=== PATIENT | male | born 1990 | race Caucasian/White ===

== ENCOUNTER 2016-07-06 08:19 | Emergency (ER) | payer BC ==
[~2016-07-06] VITALS: Ht 185.4 cm; Wt 102.0 kg
[~2016-07-06 08:19] MED LIST: DEXT15TA PO
[2016-07-06 08:25] VITALS: BP 134/91; PULSE 88; RESP 16; TEMP 98; O2SAT 100
[2016-07-06] MEDS ORDERED: CLIN150 PO (08:45)
--- NOTE | 2016-07-06 08:45 | PD ---
HPI Chief Complaint: Bleeding Time Seen by Provider: 08:39 Travel History International Travel<30 days: No Contact w/Intl Traveler<30days: No Traveled to known affect area: No History of Present Illness HPI The patient is a 26-year-old male who presents emergency department for chronic wound to left ankle. The patient notes a 3-4 year history of chronic wound to left lower extremity. The patient has been evaluated by vascular surgeons and will care physicians in the past, however, continues to have a chronic ulceration to the medial aspect the left ankle. 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 The patient states that he was showering this morning and had a small amount of bleeding from the affected area which is currently resolved. He also notes a history of superficial varicosities to left lower extremity and has been seen by a vascular surgeon in the past. He denies any history of DVT. The patient's symptoms are mild, resolved after holding pressure to the affected area, and possibly precipitated by cleaning the area. PFSH Past Medical History ADD: Yes Asthma: Yes (CHILDHOOD ASTHMA HX OF HAY FEVER) Diabetes: No Diminished Hearing: No Immunizations Current: Yes Past Surgical History Other Surgery: Yes (CYST FROM LOWER BACK REMOVED ) Social History Alcohol Use: Yes (SOC) Tobacco Use: Yes (1PPW) Substance Use: No Allergies-Medications (Allergen,Severity, Reaction): Coded Allergies: White Fish (Verified Allergy, Severe, Anaphylaxis, 07/06/16) THROAT SWELLS CLOSED Sulfa (Verified Allergy, Intermediate, Rash, 07/06/16) Reported Meds & Prescriptions Reported Meds & Active Scripts Active Reported Adderall 15 mg (Amphetamine/Dextroamphetamine) 15 Mg Tab 15 Mg PO DAILY Review of Systems General / Constitutional: No: Fever Musculoskeletal: Positive: Edema, Pain Skin: Positive Other (as noted in the history of present illness) Neurologic: No: Paresthesia, Sensory Disturbance Physical Exam Narrative GENERAL: Awake, alert, pleasant 26-year-old male who appears his stated age and is in no acute respiratory distress. SKIN: Warm and dry. HEAD: Atraumatic. Normocephalic. EYES: No injection or drainage.. MUSCULOSKELETAL: Patient has ulceration in the medial aspect of the left lower extremity just superior to the medial malleus. It measures 5 cm x 2.5 cm with granulation tissue. Surrounding chronic venous stasis changes noted. Superficial varicosities a left lower extremity noted, negative Homans sign. Positive left dorsalis with a pulse. No tenderness of the left popliteal fossa. NEUROLOGICAL: Awake and alert. No obvious cranial nerve deficits. Motor grossly within normal limits. Normal speech. PSYCHIATRIC: Appropriate mood and affect; insight and judgment normal. Data Data Last Documented VS Vital Signs Date Time Temp Pulse Resp B/P Pulse Ox O2 Delivery O2 Flow Rate FiO2 07/06/16 08:25 98.0 88 16 134/91 100 Orders Wound Care (07/06/16 08:40) MDM Medical Decision Making Medical Screen Exam Complete: Yes Emergency Medical Condition: Yes Medical Record Reviewed: Yes Differential Diagnosis Differential diagnosis includes chronic venous stasis, chronic ulcer, Buerger's disease, superficial varicosities, DVT. Narrative Course The patient's ulceration is chronic, he has small amount of bleeding earlier today per his report, but upon inspection there is no active bleeding. Positive distal pulses, chronic venous stasis changes with superficial varicosities but negative Homans sign. I doubt DVT. Patient is advised to follow-up with the wound care physician. Patient is advised to apply pressure dressings as needed, wound care instructions, work excuse for one day. He is also counseled to stop smoking. Diagnosis Primary Impression: Chronic ulcer of ankle Qualified Code: L97.329 - Chronic ulcer of ankle, left, with unspecified severity Patient Instructions: General Instructions Additional Instructions: Clindamycin as directed. Elevate, pressure dressings, follow-up with her wound care physician. Stop smoking. Work excuse for one day. Med/Other Pt SpecificInfo: Prescription(s) given Scripts Clindamycin (Cleocin)150 Mg Prn479 Mg PO Q6H 7 Days Ref 0 Prov:Rey Rojas MD 07/06/16 Disposition: 01 DISCHARGE HOME Condition: Stable Rey Rojas MD Jul 06, 2016 08:45
== END 2016-07-06 09:22 | disposition home or self-care (01) ==
LOC: PHED 08:19
DX: L97.329 Non-pressure chronic ulcer of left ankle with unspecified severity (principal)
CPT/HCPCS: 99282

== ENCOUNTER 2016-12-03 09:52 | Emergency (ER) | payer BC, OTHER ==
[~2016-12-03] VITALS: Ht 185.4 cm; Wt 110.0 kg
[~2016-12-03 09:52] MED LIST changes: +CLIN150 PO
[2016-12-03 09:54] VITALS: BP 128/76; PULSE 104; RESP 20; TEMP 97.6; O2SAT 95
--- NOTE | 2016-12-03 10:19 | PD ---
HPI Chief Complaint: Injury Time Seen by Provider: 10:14 Travel History International Travel<30 days: No Contact w/Intl Traveler<30days: No Traveled to known affect area: No History of Present Illness HPI Healthy 26-year-old male with history of venous insufficiency in the left leg with varicosities here with complaint of abrasion and bleeding. Patient was building a dock when piece of vinyl siding fell and hit the medial malleoli are aspect of his left leg where a superficial venous varicosities's. He sustained an abrasion and noted bleeding that he couldn't get to stop prompting ER visit. He has been able ambulate without any difficulty and denies any pain in the bony ankle anatomy. PFSH Past Medical History ADD: Yes Asthma: Yes (CHILDHOOD ASTHMA HX OF HAY FEVER) Diabetes: No Diminished Hearing: No Immunizations Current: Yes Past Surgical History Other Surgery: Yes (CYST FROM LOWER BACK REMOVED ) Social History Alcohol Use: Yes (SOC) Tobacco Use: Yes (1PPW) Substance Use: No Allergies-Medications (Allergen,Severity, Reaction): Coded Allergies: White Fish (Verified Allergy, Severe, Anaphylaxis, 12/03/16) THROAT SWELLS CLOSED Sulfa (Verified Allergy, Intermediate, Rash, 12/03/16) Reported Meds & Prescriptions Reported Meds & Active Scripts Active Cleocin (Clindamycin HCl) 150 Mg Cap 150 Mg PO Q6H 7 Days Reported [id number] Mg 15 Mg Tab 15 Mg PO DAILY Review of Systems Except as stated in HPI: all other systems reviewed are Neg Physical Exam Narrative GENERAL: Well-appearing male in no acute distress SKIN: Focused skin assessment warm/dry. HEAD: Normocephalic. EYES: No scleral icterus. No injection or drainage. CARDIOVASCULAR: Regular rate and rhythm. RESPIRATORY: No accessory muscle use. GASTROINTESTINAL: Obese MUSCULOSKELETAL: Venous stasis changes to the skin of the left medial malleoli region with associated to abrasions. No active bleeding, erythema, fluctuance. Significant venous varicosities to the left lower extremity area moves ankle without any difficulty, able to ambulate and bear weight without any difficulty. NEUROLOGICAL: Awake and alert. Normal speech. PSYCHIATRIC: Appropriate mood and affect; insight and judgment normal. Data Data Last Documented VS Vital Signs Date Time Temp Pulse Resp B/P Pulse Ox O2 Delivery O2 Flow Rate FiO2 12/03/16 09:54 97.6 104 20 128/76 95 Room Air [facility] Medical Decision Making Medical Screen Exam Complete: Yes Emergency Medical Condition: Yes Medical Record Reviewed: Yes Differential Diagnosis 26-year-old male here with complaint of bleeding and wound the left ankle. Exam is consistent with abrasion. No evidence of cellulitis, abscess or injury to the bony ankle anatomy. There is no evidence of active venous bleeding on exam. Narrative Course Patient reassured and given outpatient wound care clinic follow-up as needed if his wound is not healing. He does have significant varicosities and would potentially be a good candidate for vein stripping or laser therapy as an outpatient. This was discussed with patient. Diagnosis Primary Impression: Abrasion, left ankle, initial encounter Additional Impression: Venous insufficiency Referrals: Sejal Mosley MD as needed [place] [facility] as needed if wound does not heal. Additional Instructions: Wound care as instructed. Follow-up with wound care clinic if abrasion is not healing appropriately. Med/Other Pt SpecificInfo: No Change to Meds Disposition: 01 DISCHARGE HOME Condition: Stable Khalida Regalado MD Dec 03, 2016 10:19
[2016-12-03 10:20] VITALS: PULSE 86
== END 2016-12-03 10:50 | disposition home or self-care (01) ==
LOC: NEPD 09:52
DX: S80.812A Abrasion, left lower leg, initial encounter (principal); I87.2 Venous insufficiency (chronic) (peripheral); J45.909 Unspecified asthma, uncomplicated; F17.200 Nicotine dependence, unspecified, uncomplicated; W22.8XXA Striking against or struck by other objects, initial encounter; Z79.899 Other long term (current) drug therapy; Z88.2 Allergy status to sulfonamides
CPT/HCPCS: 99282

== ENCOUNTER 2017-02-09 01:16 | Emergency (ER) | payer SELFPAY ==
[~2017-02-09] VITALS: Ht 185.4 cm; Wt 100.0 kg
[2017-02-09 01:21] VITALS: BP 136/65; PULSE 135; RESP 12; TEMP 98.6; O2SAT 100
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
[2017-02-09] MEDS ORDERED: SODIUM CHLORIDE 0.9% FLUSH 10 ML FLUSH IVF PRN (01:45)
[2017-02-09] MEDS ORDERED: SODIUM CHLOR 0.9% 1000 ML INJ 1,000 ML IV ONE ×4 (01:45→07:00)
[2017-02-09 01:52] LABS: AUTOMATED NEUTROPHIL # 6.2 TH/MM3 (1.8-7.7); BASOPHIL # 0.1 TH/MM3 (0-0.2); BASOPHIL % 0.9 % (0.0-2.0); EOSINOPHIL # 0.2 TH/MM3 (0-0.4); EOSINOPHIL % 1.6 % (0.0-4.0); HEMO FLAGS DIFF FINAL; LYMPH % 24.2 % (9.0-44.0); LYMPHOCYTE # 2.4 TH/MM3 (1.0-4.8); MEAN CELL VOLUME 89.7 FL (80.0-100.0); MEAN CORPUSCULAR HGB CONC 33.5 % (32.0-36.0); MONO % 10.3 % (0.0-8.0); PLATELET COUNT 265 TH/MM3 (150-450); RED BLOOD COUNT 4.79 MIL/MM3 (4.50-5.90); RED CELL DISTRIBUTION WIDTH 13.6 % (11.6-17.2); WHITE BLOOD COUNT 9.8 TH/MM3 (4.0-11.0)
[2017-02-09 02:13] LABS: APTT (PATIENT) 20.5 SEC (24.3-30.1)
[2017-02-09 02:17] LABS: ALT (GPT) 30 U/L (12-78); ANION GAP 22 MEQ/L (5-15); AST (GOT) 24 U/L (15-37); BICARBONATE 16.2 MEQ/L (21.0-32.0); BLOOD UREA NITROGEN 15 MG/DL (7-18); CHLORIDE 104 MEQ/L (98-107); GLOMERULAR FILTRATION RATE 46 ML/MIN (>89); MAGNESIUM 2.3 MG/DL (1.5-2.5); POTASSIUM 3.3 MEQ/L (3.5-5.1); SODIUM (NA) 142 MEQ/L (136-145)
[2017-02-09 02:19] LABS: ALKALINE PHOSPHATASE 48 U/L (45-117); TOTAL BILIRUBIN ADULT 0.3 MG/DL (0.2-1.0)
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
[2017-02-09 02:20] LABS: ALCOHOL 3 MG/DL (0-5)
[2017-02-09 02:21] LABS: ACETAMINOPHEN LESS THAN 2.0 MCG/ML (10.0-30.0)
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
[2017-02-09 04:46] LABS: BACTERIA, URINE RARE /hpf; BLOOD, URINE NEG (NEG); COMMENT (UR) CULT NOT INDICATED; CULTURE IF INDICATED CULT NOT INDICATED; GLUCOSE,URINE NEG (NEG); HYALINE CAST, URINE 3 /lpf (RARE); KETONE, URINE TRACE mg/dL (NEG); MUCUS URINE FEW /lpf (OCC); NITRITE,URINE NEG (NEG); PH, URINE 6.5 (5.0-8.5); URINE COLOR YELLOW (YELLW/STRAW)
[2017-02-09 05:15] VITALS: BP 132/77; PULSE 96; RESP 15; O2SAT 99
[2017-02-09 05:45] VITALS: BP 135/87; PULSE 99; RESP 15; O2SAT 99
[2017-02-09 06:30] VITALS: BP 135/72; PULSE 97; RESP 14; O2SAT 99
[2017-02-09] MEDS ORDERED: AMBI10TA PO (07:05)
[2017-02-09] MEDS ORDERED: MIRTA15 PO (07:05)
[2017-02-09] MEDS ORDERED: ADDE30TA PO (07:05)
[2017-02-09 07:06] LABS: POTASSIUM 3.9 MEQ/L (3.5-5.1)
[2017-02-09] MEDS ORDERED: CALCIUM GLUCONATE 500 MG TAB PO ONE (07:30)
--- NOTE | 2017-02-09 09:16 | EKG ---
Date Performed: 02/09/2017 Time Performed: 02:20:31 PTAGE: 26 years EKG: SINUS TACHYCARDIA POSSIBLE RIGHT VENTRICULAR CONDUCTION DELAY POSSIBLE INFERIOR MYOCARDIAL INFARCTION ABNORMAL RHYTHM ECG PREVIOUS TRACING : 03/10/2016 08.23 DOCTOR: Barrie Chavez Interpretating Date/Time 02/09/2017 09:15:20
[2017-02-09] MEDS ORDERED: CALCIUM CARBONATE 500 MG CHEWABLE TAB CHEW ONE (09:30)
[2017-02-09 09:40] VITALS: BP 133/72
== END 2017-02-09 09:58 ==
LOC: NEPC 01:16
DX: F19.94 Other psychoactive substance use, unspecified with psychoactive substance-induced mood disorder (principal); F17.200 Nicotine dependence, unspecified, uncomplicated; F90.9 Attention-deficit hyperactivity disorder, unspecified type; R00.0 Tachycardia, unspecified; R07.9 Chest pain, unspecified; Z79.899 Other long term (current) drug therapy
CPT/HCPCS: 70450; 71010; 80053; 80307; 81001; 82800; 83605; 83735; 84484; 85025; 85610; 85730; 93005; 96360; 96361; 99285; J7030; 80048

== ENCOUNTER 2017-06-11 17:26 | Emergency (ER) | payer MEDICAID ==
[~2017-06-11] VITALS: Ht 185.4 cm; Wt 97.7 kg
[~2017-06-11 17:26] MED LIST changes: +ADDE30TA PO; +AMBI10TA PO; -CLIN150 PO; -DEXT15TA PO; +MIRTA15 PO
[2017-06-11 17:28] VITALS: BP 148/88; PULSE 119; RESP 13; TEMP 98.3; O2SAT 98
[2017-06-11] MEDS ORDERED: ALPR2TAB3 PO (17:52)
--- NOTE | 2017-06-11 18:10 | PD ---
HPI Chief Complaint: Medication Refill Request Time Seen by Provider: 17:51 Travel History International Travel<30 days: No Contact w/Intl Traveler<30days: No Traveled to known affect area: No History of Present Illness HPI 27-year-old male presents to the emergency room requesting medication refill of Xanax and Adderall. Patient states he has been out of his medications for 5 days. He has been tapering his Xanax because he is concerned for withdrawal seizures. He has had no symptoms of withdrawal otherwise. States he has been anxious and had difficulty concentrating in school since stopping his medications. He went to his appointment with his psychiatrist today but they would not see him because he had an outstanding balance. It took him this long to see a psychiatrist because of the holidays. Patient denies suicidal or homicidal ideations at this time. History Social History Alcohol Use: No Tobacco Use: Yes (1 pack per week) Allergies-Medications (Allergen,Severity, Reaction): Coded Allergies: Fish Containing Products (Unverified Allergy, Severe, Anaphylaxis, 01/22/17 ) THROAT SWELLS CLOSED Sulfa (Sulfonamide Antibiotics) (Unverified Allergy, Intermediate, Rash, ) Reported Meds & Prescriptions Reported Meds & Active Scripts Active Reported Alprazolam 2 Mg Tab 2 Mg PO BID Mirtazapine 15 Mg Tab 15 Mg PO HS Adderall (Amphetamine-Dextroamphetamine) 30 Mg Tab 30 Mg PO BID Avoid late evening doses. Space doses at least 4 to 6 hours if more than once/day dosing. Review of Systems Except as stated in HPI: all other systems reviewed are Neg Physical Exam Narrative GENERAL: Well-nourished, well-developed patient. SKIN: Focused skin assessment warm/dry. HEAD: Normocephalic. EYES: No scleral icterus. No injection or drainage. NECK: Supple, trachea midline. No JVD or lymphadenopathy. CARDIOVASCULAR: Very slightly tachycardic. Regular rhythm without murmurs, gallops, or rubs. RESPIRATORY: Breath sounds equal bilaterally. No accessory muscle use. PSYCHIATRIC: No delusional thought processes. No hallucinations. Normal affect. Data Data Last Documented VS Vital Signs Date Time Temp Pulse Resp B/P (MAP) Pulse Ox O2 Delivery O2 Flow Rate FiO2 06/11/17 17:28 98.3 119 13 148/88 (108) 98 MDM Medical Screen Exam Complete: Yes Emergency Medical Condition: No Differential Diagnosis Medication refill Narrative Course 27 year-old male presents to the emergency room requesting medication refills it on her own Xanax. States he ran out 5 days ago and he has been tapering the Xanax. He could not see his psychiatrist earlier because of the holidays. He had an appointment today but they would not see him because he has an outstanding balance. Patient denies suicidal or homicidal ideation at this time. States he patient appropriately and needs some for school. Reports being more anxious over the past 5 days. Patient appears slightly anxious in the ED. Physical exam is reassuring. Normal affect. He is calm with normal insight and judgment. Patient was informed we did not refill those medications from the emergency room and given outpatient resources. He states he feels better just after talking. There are no urgent or emergent medical conditions at this time. A medical screening exam was performed: At the time of evaluation the presenting medical condition was determined not to be of an emergent nature. The patient was given the option of receiving additional care, such as prescription for Vistaril, but declined. Patient was given options for additional community resources from which to obtain care. The Patient Has Been advised to seek medical attention for their presenting complaint. The patient has been advised to return to the ER at any time if an emergent condition develops. Primary Impression: Encounter for medical screening examination Disposition: 01 DISCHARGE HOME Condition: Stable Princess Olivera Jun 11, 2017 18:10
[2017-06-11 18:17] VITALS: PULSE 74; RESP 18; O2SAT 98
== END 2017-06-11 18:10 | disposition left against medical advice (07) ==
LOC: NEPK 17:26
DX: Z76.0 Encounter for issue of repeat prescription (principal)
CPT/HCPCS: 99281

== ENCOUNTER 2017-10-18 07:21 | Emergency (ER) | payer SELFPAY ==
[~2017-10-18] VITALS: Ht 182.9 cm; Wt 100.0 kg
[~2017-10-18 07:21] MED LIST changes: +ALPR2TAB3 PO; -AMBI10TA PO
[2017-10-18 07:25] VITALS: BP 136/81; PULSE 123; RESP 25; TEMP 99.1; O2SAT 96
[2017-10-18 07:32] VITALS: BP 136/81; PULSE 123; RESP 25; TEMP 99.1; O2SAT 96
[2017-10-18] MEDS ORDERED: ZIPRASIDONE MESYLATE 20 MG VIAL IM ONE (07:45)
[2017-10-18 07:50] LABS: AUTOMATED NEUTROPHIL # 11.1 TH/MM3 (1.8-7.7); BASOPHIL # 0.1 TH/MM3 (0-0.2); BASOPHIL % 0.5 % (0.0-2.0); EOSINOPHIL % 0.1 % (0.0-4.0); HEMATOCRIT 44.1 % (39.0-51.0); HEMOGLOBIN 15.2 GM/DL (13.0-17.0); LYMPH % 12.1 % (9.0-44.0); LYMPHOCYTE # 1.7 TH/MM3 (1.0-4.8); MEAN CELL VOLUME 89.7 FL (80.0-100.0); MEAN CORPUSCULAR HEMOGLOBIN 30.9 PG (27.0-34.0); MEAN CORPUSCULAR HGB CONC 34.4 % (32.0-36.0); MEAN PLATELET VOLUME 8.8 FL (7.0-11.0); MONO % 8.5 % (0.0-8.0); MONOCYTE # 1.2 TH/MM3 (0-0.9); NEUT % 78.8 % (16.0-70.0); PLATELET COUNT 284 TH/MM3 (150-450); RED BLOOD COUNT 4.91 MIL/MM3 (4.50-5.90); RED CELL DISTRIBUTION WIDTH 13.7 % (11.6-17.2); WHITE BLOOD COUNT 14.1 TH/MM3 (4.0-11.0)
--- NOTE | 2017-10-18 07:54 | PD ---
HPI Chief Complaint: Altered Mental Status Time Seen by Provider: 07:22 Travel History International Travel<30 days: No Contact w/Intl Traveler<30days: No Traveled to known affect area: No History of Present Illness HPI This is a 27-year-old male with a history of polysubstance abuse, ADHD, who presents today via EMS in custody after he was found running naked through [place] the airport. Paramedics report that he was acutely agitated and running through the airport. [facility] to [facility]. Paramedics called for orders to administer Versed to help calm the patient down prior to arrival. When patient arrived, he was awake however agitated and intermittently answering questions. He reported that he had used cocaine and takes Adderall. No further history could be elicited from the patient. [facility] Past Medical History ADD: Yes Asthma: Yes (CHILDHOOD ASTHMA HX OF HAY FEVER) Anxiety: Yes Depression: Yes Diabetes: No Diminished Hearing: No Psychiatric: Yes Immunizations Current: Yes Tetanus Vaccination: < 5 Years Influenza Vaccination: No ?: Not Past Surgical History Other Surgery: Yes (CYST FROM LOWER BACK REMOVED ) Social History Alcohol Use: Yes Tobacco Use: Yes (1 pack per week) Substance Use: Yes (COCAINE, APHETAMINE, XANAX) Allergies-Medications (Allergen,Severity, Reaction): Coded Allergies: Fish Containing Products (Unverified Allergy, Severe, Anaphylaxis, 01/22/17 ) THROAT SWELLS CLOSED Sulfa (Sulfonamide Antibiotics) (Unverified Allergy, Intermediate, Rash, ) Reported Meds & Prescriptions Reported Meds & Active Scripts Active Reported Alprazolam 2 Mg Tab 2 Mg PO BID Mirtazapine 15 Mg Tab 15 Mg PO HS Adderall (Amphetamine-Dextroamphetamine) 30 Mg Tab 30 Mg PO BID Avoid late evening doses. Space doses at least 4 to 6 hours if more than once/day dosing. Review of Systems ROS Limitations: Clinical Condition (Unable to obtain clear review of systems. Patient has no medical complaints initially.), Intoxication Except as stated in HPI: all other systems reviewed are Neg Psychiatric: Positive: Substance Abuse (Reported), Other (ADHD) Physical Exam Narrative GENERAL: Well-developed well-nourished male who appears agitated. SKIN: Focused skin assessment warm/dry. HEAD: Atraumatic. Normocephalic. EYES: Pupils equal and dilated at 4 mm. No scleral icterus. No injection or drainage. ENT: No nasal bleeding or discharge. Mucous membranes pink and moist. NECK: Trachea midline. No JVD. Supple. CARDIOVASCULAR: Sinus rhythm at 98. No murmur appreciated. RESPIRATORY: No accessory muscle use. Clear to auscultation. Breath sounds equal bilaterally. GASTROINTESTINAL: Abdomen soft, non-tender, nondistended. Hepatic and splenic margins not palpable. MUSCULOSKELETAL: No obvious deformities. No clubbing. No cyanosis. No edema. Patient has soiled hands and feet. NEUROLOGICAL: Awake and agitated. No obvious cranial nerve deficits. Motor grossly within normal limits. Pressured speech. Data Data Last Documented VS Vital Signs Date Time Temp Pulse Resp B/P (MAP) Pulse Ox O2 Delivery O2 Flow Rate FiO2 10/18/17 12:00 97 20 137/89 (105) 98 Room Air 10/18/17 07:32 99.1 Orders Orders Complete Blood Count With Diff (10/18/17 07:34) Comprehensive Metabolic Panel (10/18/17 07:34) Thyroid Stimulating Hormone (10/18/17 07:34) Electrocardiogram (10/18/17 07:34) Psych Screen (10/18/17 07:34) Drug Screen, Random Urine (10/18/17 07:34) Alcohol (Ethanol) (10/18/17 07:34) Tylenol (Acetaminophen) (10/18/17 07:34) Salicylates (Aspirin) (10/18/17 07:34) Ziprasidone Inj (Geodon Inj) (10/18/17 07:45) Ckmb (Isoenzyme) Profile (10/18/17 07:54) Troponin I (10/18/17 07:54) CKMB (10/18/17 07:40) CKMB% (10/18/17 07:40) Diet Regular Basic (10/18/17 Lunch) Sodium Chlor 0.9% 1000 Ml Inj (Ns 1000 M (10/18/17 13:15) Sodium Chlor 0.9% 1000 Ml Inj (Ns 1000 M (10/18/17 13:15) Labs Laboratory Tests Test 10/18/17 07:40 White Blood Count 14.1 TH/MM3 Red Blood Count 4.91 MIL/MM3 Hemoglobin 15.2 GM/DL Hematocrit 44.1 % Mean Corpuscular Volume 89.7 FL Mean Corpuscular Hemoglobin 30.9 PG Mean Corpuscular Hemoglobin Concent 34.4 % Red Cell Distribution Width 13.7 % Platelet Count 284 TH/MM3 Mean Platelet Volume 8.8 FL Neutrophils (%) (Auto) 78.8 % Lymphocytes (%) (Auto) 12.1 % Monocytes (%) (Auto) 8.5 % Eosinophils (%) (Auto) 0.1 % Basophils (%) (Auto) 0.5 % Neutrophils # (Auto) 11.1 TH/MM3 Lymphocytes # (Auto) 1.7 TH/MM3 Monocytes # (Auto) 1.2 TH/MM3 Eosinophils # (Auto) 0.0 TH/MM3 Basophils # (Auto) 0.1 TH/MM3 CBC Comment DIFF FINAL Differential Comment Blood Urea Nitrogen 9 MG/DL Creatinine 1.59 MG/DL Random Glucose 68 MG/DL Total Protein 8.2 GM/DL Albumin 4.4 GM/DL Calcium Level 9.5 MG/DL Alkaline Phosphatase 57 U/L Aspartate Amino Transf (AST/SGOT) 43 U/L Alanine Aminotransferase (ALT/SGPT) 28 U/L Total Bilirubin 0.8 MG/DL Sodium Level 143 MEQ/L Potassium Level 3.6 MEQ/L Chloride Level 107 MEQ/L Carbon Dioxide Level 23.3 MEQ/L Anion Gap 13 MEQ/L Estimat Glomerular Filtration Rate 53 ML/MIN Total Creatine Kinase 1369 U/L Creatine Kinase MB 3.4 NG/ML Creatine Kinase MB % 0.2 % Troponin I LESS THAN 0.02 NG/ML Thyroid Stimulating Hormone 3rd Gen 0.656 uIU/ML Salicylates Level 2.6 MG/DL Urine Opiates Screen NEG Acetaminophen Level LESS THAN 2.0 MCG/ML Urine Barbiturates Screen NEG Urine Amphetamines Screen POS Urine Benzodiazepines Screen POS Urine Cocaine Screen NEG Urine Cannabinoids Screen NEG Ethyl Alcohol Level LESS THAN 3 MG/DL MDM Medical Decision Making Medical Screen Exam Complete: Yes Emergency Medical Condition: Yes Differential Diagnosis Substance-induced mood disorder versus acute psychosis versus rhabdomyolysis. Narrative Course 27-year-old male with a history of ADHD, substance-induced mood disorder, venous insufficiency, chronic left ankle ulcer, who presents here after he was found running naked through the airport. Patient admits to taking Adderall and using cocaine. Patient required 2 mg of Versed via EMS prior to arrival. He been given 10 mg of Geodon when he arrived. His creatinine was noted to be 1.5. Baseline is 1.25. He has been given 2 L of IV fluid. He will be medically cleared for the program dir's office to take him into custody. Recommendation will be for the chronic left lower extremity ulcer to have wound changes daily. Diagnosis Primary Impression: Substance induced mood disorder Additional Impressions: [id number] kidney injury Chronic ulcer of left ankle History of venous stasis/insufficiency Additional Instructions: Dressing change to left chronic ankle wound daily. Increase fluid intake over the next 24-48 hours. Disposition: [address] LAW ENFORCEMNT Condition: Stable Asaf Pruitt MD October 18, 2017 07:54
[2017-10-18 08:07] LABS: ALBUMIN 4.4 GM/DL (3.4-5.0); ALT (GPT) 28 U/L (12-78); BICARBONATE 23.3 MEQ/L (21.0-32.0); BLOOD UREA NITROGEN 9 MG/DL (7-18); CALCIUM 9.5 MG/DL (8.5-10.1); CHLORIDE 107 MEQ/L (98-107); CREATININE 1.59 MG/DL (0.60-1.30); GLOMERULAR FILTRATION RATE 53 ML/MIN (>89); GLUCOSE,RANDOM 68 MG/DL (74-106); SODIUM (NA) 143 MEQ/L (136-145)
[2017-10-18 08:20] LABS: ALKALINE PHOSPHATASE 57 U/L (45-117); AST (GOT) 43 U/L (15-37); TOTAL BILIRUBIN ADULT 0.8 MG/DL (0.2-1.0); TOTAL PROTEIN 8.2 GM/DL (6.4-8.2)
[2017-10-18 08:24] LABS: TROPONIN I LESS THAN 0.02 NG/ML (0.02-0.05)
[2017-10-18 08:39] LABS: ACETAMINOPHEN LESS THAN 2.0 MCG/ML (10.0-30.0)
[2017-10-18 12:00] VITALS: BP 137/89; PULSE 97; RESP 20; O2SAT 98
[2017-10-18] MEDS ORDERED: SODIUM CHLOR 0.9% 1000 ML INJ 1,000 ML IV ONE ×2 (13:15)
[2017-10-18 15:00] VITALS: BP 130/87; PULSE 102; RESP 20; O2SAT 99
--- NOTE | 2017-10-19 08:21 | EKG ---
Date Performed: 10/18/2017 Time Performed: 08:15:16 PTAGE: 27 years EKG: SINUS TACHYCARDIA POSSIBLE RIGHT VENTRICULAR CONDUCTION DELAY ABNORMAL ECG PREVIOUS TRACING : 02/09/2017 02.20 DOCTOR: Randall Lopez Interpretating Date/Time 10/19/2017 08:18:55
== END 2017-10-18 15:15 ==
LOC: NEPE 07:21
DX: F19.94 Other psychoactive substance use, unspecified with psychoactive substance-induced mood disorder (principal); N17.9 Acute kidney failure, unspecified; L97.329 Non-pressure chronic ulcer of left ankle with unspecified severity; I87.8 Other specified disorders of veins; F90.9 Attention-deficit hyperactivity disorder, unspecified type; F17.200 Nicotine dependence, unspecified, uncomplicated; R00.0 Tachycardia, unspecified; Z79.899 Other long term (current) drug therapy
CPT/HCPCS: 80053; 80307; 82550; 82552; 84443; 84484; 85025; 93005; 96360; 96372; 99284; J3486; J7030